=== PATIENT | female | born 2000 | race American Indian/Alaskan Native ===

== ENCOUNTER 2019-05-23 22:56 | Inpatient (IN) | payer MEDICAID ==
[2019-05-23] MEDS ORDERED: ePHEDrine SULFATE 50 MG/1 ML INJ IV PRN (23:16)
[2019-05-23] MEDS ORDERED: LIDOCAINE (2%) 20 MG/1 ML VIAL 20 ML MDV INFILTRATI ONE (23:16)
[2019-05-23] MEDS ORDERED: TERBUTALINE 1 MG/1 ML INJ SUB-Q PRN (23:16)
[2019-05-23] MEDS ORDERED: MINERAL OIL 30 ML ORAL LIQD PO PRN (23:16)
[2019-05-23] MEDS ORDERED: TERBUTALINE 1 MG/1 ML INJ IVP PRN (23:16)
--- NOTE | 2019-05-23 23:16 | History and Physical Report ---
History of Present Illness Date of examination: 05/23/19 Date of admission: 05/23/19 22:56 Chief complaint: Labor History of present illness: Pt is a 18yo BF EDC - unknown presents to L&D complaining of RUC's q 3-4 mins. She did not receive care with this , but course has been unremarkable. Past History Past Medical History: no pertinent history Past Surgical History: no surgical history Social history: no significant social history, single - Obstetrical History Expected Date of Delivery: 05/31/19 Actual Gestation: 39 Week(s) 0 Day(s) Medications and Allergies Allergies Allergy/AdvReac Type Severity Reaction Status Date / Time mushrooms Allergy Hives Uncoded 11/21/13 16:05 Home Medications Medication Instructions Recorded Confirmed Last Taken Type Acetaminophen/Codeine [Tylenol #3] 1 tab PO Q6H PRN #20 tab 11/21/13 Unknown Rx Ibuprofen [Motrin] 400 mg PO Q8H PRN #60 tablet 11/21/13 Unknown Rx Review of Systems All systems: negative - Vital Signs Vital signs: Vital Signs Pulse BP 81 124/71 05/23/19 23:10 05/23/19 23:10 Temp Pulse Resp BP Pulse Ox 81 124/71 05/23/19 23:10 05/23/19 23:10 - Physical Exam Abdomen: Positive: normal appearance, soft Uterus: Positive: enlarged - Obstetrical FHR: category 1 Uterine Contraction Monitor Mode: External Cervical Dilatation: 10 (per nurse) Cervical Effacement Percentage: 100 (per nurse) station: +3 Uterine Contraction Pattern: Regular Uterine Tone Measurement Phase: Contraction Uterine Contraction Intensity: Strong/Firm Results All other labs normal. Assessment and Plan - Patient Problems (1) 39 weeks gestation of Onset Date: 05/23/19 Current Visit: Yes Status: Acute Plan to address problem: A: IUP @ 39 0/7 weeks in labor No care Unknown GBS P: Admit to L&D for imminent vaginal delivery Obtain labs (2) No care in current in third trimester Onset Date: 05/23/19 Current Visit: Yes Status: Acute
[2019-05-23] MEDS ORDERED: HYDROcodone/ACETAMINOPHEN 5-325 MG TAB PO PRN (23:21)
[2019-05-23] MEDS ORDERED: WITCH HAZEL/ GLYCERIN PAD TP PRN (23:21)
[2019-05-23] MEDS ORDERED: PROMETHAZINE 25 MG RECT SUPP PR PRN (23:21)
[2019-05-23] MEDS ORDERED: ACETAMINOPHEN 325 MG TAB PO PRN (23:21)
[2019-05-23] MEDS ORDERED: LANOLIN/ZINC/DIMETHICONE (LANSINOH) 7 GM TP PRN (23:21)
[2019-05-23] MEDS ORDERED: diphenhydrAMINE 25 MG CAP PO PRN (23:21)
[2019-05-23] MEDS ORDERED: ONDANSETRON 4 MG/2 ML INJ IV PRN (23:21)
[2019-05-23] MEDS ORDERED: PROMETHAZINE 25 MG TAB PO PRN (23:21)
[2019-05-23] MEDS ORDERED: MAGNESIUM HYDROXIDE (MOM) ORAL LIQD UDC PO PRN (23:21)
--- NOTE | 2019-05-23 23:26 | Procedure Note ---
OB Delivery Note - Delivery Date of Delivery: 05/23/19 Surgeon: TREVIN BANERJEE Estimated blood loss: 200cc - Vaginal Delivery presentation: vertex Delivery position: OA Intrapartum events: no care Delivery induction: none Delivery augmentation: rupture of membranes Delivery monitor: external FHT, external uterine Route of delivery: Delivery placenta: spontaneous Delivery cord: 3 umbilical vessels Episiotomy: none Anesthesia: none Delivery comments: Infant delivered OA and placed on Mom's chest for [id number] bonding - A at 1 minute: 8 at 5 minutes: 9 Infant Gender: Male (3253gms)
[2019-05-23] MEDS ORDERED: LACTATED RINGERS 1,000 ML IV SCH (23:45)
[2019-05-23] MEDS ORDERED: OXYTOCIN 20 UNIT/1000ML DRIP 20 UNITS/1,000 ML BAG IV SCH ×2 (23:45)
[2019-05-23] MEDS ORDERED: OXYTOCIN DRIP 30 UNITS/500 ML BAG IV SCH (23:45)
[2019-05-24 01:34] LABS: Hemoglobin 8.5 gm/dl (10.1-14.3); Mean Corpuscular HGB Conc 32 % (30-34); Mean Corpuscular Volume 74 fl (79-97); Platelet Count 321 K/mm3 (140-440); Red Blood Count 3.66 M/mm3 (3.65-5.03)
[2019-05-24] MEDS ORDERED: MEASLES, MUMPS & RUBELLA 12,500 UNIT/0.5 ML VACCINE SUB-Q ONE (06:00)
[2019-05-24] MEDS ORDERED: TETANUS,DIPH,PERTUSS(ACELL) VACCINE 0.5 ML SYRINGE IM ONE (06:00)
[2019-05-24 06:37] LABS: Amphetamine Screen,Urine PRESUMPTIVE NEGATIVE; Benzodiazepines Screen,Urine PRESUMPTIVE NEGATIVE; Cannabinoid Screen,Urine PRESUMPTIVE NEGATIVE; Cocaine Screen,Urine PRESUMPTIVE NEGATIVE; Methadone Screen,Urine PRESUMPTIVE NEGATIVE; Opiate Screen,Urine PRESUMPTIVE NEGATIVE
[2019-05-24] MEDS: PRENATAL VIT27-FE FUMARATE-FOLIC ACID VIT TAB PO SCH (10:04)
[2019-05-24] MEDS: FERROUS SULFATE 325 MG TAB PO SCH (10:04)
[2019-05-24] MEDS: IBUPROFEN 600 MG TAB PO SCH ×2 (12:00→18:14)
[2019-05-24 14:40] LABS: Hematocrit 25.2 % (30.3-42.9)
[2019-05-25] MEDS: IBUPROFEN 600 MG TAB PO SCH ×5 (01:46→12:34)
[2019-05-25] MEDS: FERROUS SULFATE 325 MG TAB PO SCH ×2 (01:46→12:35)
--- NOTE | 2019-05-25 12:17 | Progress Note ---
Assessment and Plan - Patient Problems (1) 39 weeks gestation of Onset Date: 05/23/19 Current Visit: Yes Status: Resolved (2) No care in current in third trimester Onset Date: 05/23/19 Current Visit: Yes Status: Chronic (3) (normal spontaneous vaginal delivery) Onset Date: 05/25/19 Current Visit: Yes Status: Resolved Plan to address problem: A: S/P - PPD #1 Doing well Asymptomatic anemia P: May go home tomorrow. (4) Chronic blood loss anemia Onset Date: 05/25/19 Current Visit: Yes Status: Chronic Subjective - Subjective Date of service: 05/25/19 Principal diagnosis: s/p - PPD #1 Interval history: Pt is feeling well without complaints. Bleeding improved. Patient reports: appetite normal, voiding normally, pain well controlled, f latus, ambulating normally, no dizzy ambulation, no nauseated : doing well, nursing well, bottle feeding Objective - Vital Signs Latest vital signs: Vital Signs Temp Pulse Resp BP BP Pulse Ox 05/25/19 08:29 97.8 F 62 18 105/54 05/25/19 00:00 98.7 F 71 18 124/71 05/24/19 16:08 98.1 F 66 20 100/54 98 05/24/19 12:28 97.6 F 63 20 109/64 100 Intake and Output 05/24/19 05/25/19 05/25/19 22:59 06:59 14:59 Intake Total 540 540 480 Balance 540 540 480 Intake: Oral 240 240 480 Intake, Free Water 300 300 Other: Total, Intake Amount 240 240 480 # Voids Void 1 1 - Exam Breasts: Present: deferred Abdomen: Present: normal appearance, soft Uterus: Present: normal, firm, fundal height below umbilicus Extremities: Present: normal - Labs Labs: Abnormal lab results 05/24/19 Range/Units 13:51 Hgb 8.0 L (10.1-14.3) gm/dl Hct 25.2 L (30.3-42.9) % Laboratory Tests 05/24/19 05/24/19 05/24/19 01:06 01:06 01:06 WBC 9.6 RBC 3.66 Hgb 8.5 L Hct 27.0 L MCV 74 L MCH 23 L MCHC 32 RDW 16.0 H Plt Count 321 Urine Opiates Screen Urine Methadone Screen Ur Barbiturates Screen Ur Phencyclidine Scrn Ur Amphetamines Screen U Benzodiazepines Scrn Urine Cocaine Screen U Marijuana (THC) Screen Drugs of Abuse Note Syphilis IgG Antibody Hep Bs Antigen Non-reactive Rubella IgG Antibody Immune Blood Type Antibody Screen 05/24/19 05/24/19 05/24/19 01:06 01:06 05:30 WBC RBC Hgb Hct MCV MCH MCHC RDW Plt Count Urine Opiates Screen Presumptive negative Urine Methadone Screen Presumptive negative Ur Barbiturates Screen Presumptive negative Ur Phencyclidine Scrn Presumptive negative Ur Amphetamines Screen Presumptive negative U Benzodiazepines Scrn Presumptive negative Urine Cocaine Screen Presumptive negative U Marijuana (THC) Screen Presumptive negative Drugs of Abuse Note Disclamer Syphilis IgG Antibody Non-reactive Hep Bs Antigen Rubella IgG Antibody Blood Type B POSITIVE Antibody Screen Negative 05/24/19 13:51 WBC RBC Hgb 8.0 L Hct 25.2 L MCV MCH MCHC RDW Plt Count Urine Opiates Screen Urine Methadone Screen Ur Barbiturates Screen Ur Phencyclidine Scrn Ur Amphetamines Screen U Benzodiazepines Scrn Urine Cocaine Screen U Marijuana (THC) Screen Drugs of Abuse Note Syphilis IgG Antibody Hep Bs Antigen Rubella IgG Antibody Blood Type Antibody Screen
[2019-05-25] MEDS: PRENATAL VIT27-FE FUMARATE-FOLIC ACID VIT TAB PO SCH (12:35)
--- NOTE | 2019-05-25 13:56 | Discharge Summary ---
Providers - Providers Date of Admission: 05/23/19 22:56 Date of discharge: 05/26/19 Attending physician: TREVIN BANERJEE Primary care physician: GRADING CLERK Hospitalization Reason for admission: active labor, IUP at term, other (No care) Delivery: Episiotomy: none Laceration: none Incision: normal Other procedures: none complications: none Discharge diagnosis: IUP at term delivered [place] baby: male Hospital course: Unremarkable. Condition at discharge: Good Disposition: DC-01 TO HOME OR SELFCARE - Discharge Diagnoses (1) 39 weeks gestation of Status: Resolved (2) No care in current in third trimester Status: Chronic (3) (normal spontaneous vaginal delivery) Status: Resolved (4) Chronic blood loss anemia Status: Chronic Plan - Discharge Medications Prescriptions: Ferrous Sulfate [Feosol 325 MG tab] 325 mg PO BID #60 tablet Ibuprofen [Motrin 600 MG tab] 600 mg PO Q6HR #30 tablet Vit-Fe Fumar-FA [ Vitamin] 1 each PO QDAY #30 tablet - Provider Discharge Summary Activity: routine, no sex for 6 weeks, no heavy lifting 4 weeks, no strenuous exercise Diet: routine Instructions: routine Additional instructions: [] Smoking cessation referral if applicable(refer to patient education folder for contact #) [] Refer to [facility] Booklet Call your doctor immediately for: * Fever > 100.5 * Heavy vaginal bleeding ( >1 pad per hour) * Severe persistent headache * Shortness of breath * Reddened, hot, painful area to leg or breast * Drainage or odor from incision. * Keep incision clean and dry at all times and follow doctor's instructions regarding bathing/showering - Follow up plan Follow up: MIGUELITO AGUILAR MD [Primary Care Provider] - 7 Days TREVIN BANERJEE MD [Staff Physician] - 6 Weeks
[2019-05-26] MEDS: IBUPROFEN 600 MG TAB PO SCH ×2 (00:05→06:13)
[2019-05-26 09:16] VITALS: BP 105/68
[2019-05-26] MEDS ORDERED: medroxyPROGESTERone ACETATE 150 MG/ML SYRINGE IM ONE (10:18)
[2019-05-26] MEDS: FERROUS SULFATE 325 MG TAB PO SCH (10:51)
[2019-05-26] MEDS: PRENATAL VIT27-FE FUMARATE-FOLIC ACID VIT TAB PO SCH (10:51)
[2019-05-28 13:25] LABS: HIV-1 Antibody Differentiation SEE SCANNED RESULT; HIV-2 Antibody Differentiation SEE SCANNED RESULT
== END 2019-05-26 14:00 | disposition home or self-care (01) | DRG 775 ==
LOC: LD 22:56 → OB 05-24 01:33
PROVIDERS: ADMIT Obstetrics & Gynecology; ATTEND Obstetrics & Gynecology
PROC: 10E0XZZ Delivery of Products of Conception, External Approach (ICD-10-PCS; principal; 2019-05-23)
PROC: 3E0134Z Introduction of Serum, Toxoid and Vaccine into Subcutaneous Tissue, Percutaneous Approach (ICD-10-PCS; 2019-05-24)
PROC: 3E0234Z Introduction of Serum, Toxoid and Vaccine into Muscle, Percutaneous Approach (ICD-10-PCS; 2019-05-24)
DX: O99.02 Anemia complicating childbirth (principal); D50.0 Iron deficiency anemia secondary to blood loss (chronic); Z3A.39 39 weeks gestation of pregnancy; Z37.0 Single live birth; Z23 Encounter for immunization; Z91.018 Allergy to other foods
CPT/HCPCS: 36415; 80307; 85014; 85018; 85027; 86592; 86689; 86706; 86762; 86850; 86900; 86901; 88305; 88307; 90471; 90715; G0378; J1050